=== PATIENT | female | born 1980 | race Two or more races ===

== ENCOUNTER 2019-11-26 11:38 | Emergency (ER) | payer BC, OTHER ==
[~2019-11-26] VITALS: Ht 170.2 cm; Wt 74.8 kg
[2019-11-26 12:06] VITALS: BP 124/72
[2019-11-26] MEDS ORDERED: LIDOCAINE 1% HCL (LOCAL ANESTH.) INJ 20ML MDV ONE (12:25)
[2019-11-26] MEDS ORDERED: TETANUS-DIPTH-ACEL PERTUSSIS 0.5ML SYR Tdap IM ONE (12:30)
[2019-11-26] MEDS ORDERED: KETOROLAC TROMETH 60MG/2ML VIAL IM ONE (13:00)
[2019-11-26] MEDS ORDERED: cefTRIAXone SOD 1,000 MG VL IM ONE (13:00)
== END 2019-11-26 13:20 | disposition home or self-care (01) ==
LOC: ER 11:38
DX: S51.812A Laceration without foreign body of left forearm, initial encounter (principal); F17.210 Nicotine dependence, cigarettes, uncomplicated; W54.0XXA Bitten by dog, initial encounter; Y93.89 Activity, other specified; Y92.89 Other specified places as the place of occurrence of the external cause; Y99.8 Other external cause status
CPT/HCPCS: 12044; 73090; 90471; 90715; 96372; 99284; J0696; J1885; J2001